=== PATIENT | female | born 1980 | race Caucasian/White ===

== ENCOUNTER 2018-03-15 23:59 | Emergency (ER) | payer SELFPAY ==
[2016-12-29 11:35] VITALS: BMI 29.2
[2018-03-16 07:26] VITALS: BP 110/65; PULSE 91
== END 2018-03-16 02:20 | disposition home or self-care (01) ==
LOC: H.EROB2 23:59
DX: O47.03 False labor before 37 completed weeks of gestation, third trimester (principal); Z3A.23 23 weeks gestation of pregnancy; O26.92 Pregnancy related conditions, unspecified, second trimester; R10.2 Pelvic and perineal pain